=== PATIENT | female | born 1970 | race Caucasian/White ===

== ENCOUNTER 2025-01-29 22:54 | Emergency (ER) | payer BC, SELFPAY ==
--- NOTE | 2025-01-30 01:24 | ED.GENMED ---
History of Present Illness
General
Chief Complaint: Musculo-Skeletal Complaint
Source: patient
Exam Limitations: none
Time Seen by Provider: 01/30/25 00:53
Nursing documentation reviewed up to this point in time: agreed with
History of Present Illness
History of Present Illness:
54-year-old female presenting to the emergency department today after twisting her right ankle. Immediately was unable to walk secondary to pain pain mainly to the lateral aspect of her ankle. Denies any numbness weakness or additional concerns.
No additional injuries otherwise.
Review of Systems
Review of Systems
Allergies reviewed?: Yes
All Other Systems: ROS reviewed and negative except as documented in HPI and ROS
Phy Exam
Physical Exam
Physical Exam:
GENERAL: Alert , in no apparent distress
EYE: pupils equal and reactive
NECK: Supple, no significant adenopathy.
ENT: o/p clr, mmm.
CARDIAC: Regular rate and rhythm .
LUNGS: Clear breath sounds bilaterally, no acute respiratory distress, no wheezes/rales/rhonchi
ABDOMEN: Soft, without focal tenderness, no r/g, no cvat
NEUROLOGICAL: Alert and oriented, no focal neuro deficits
SKIN: Warm and dry, skin intact.
MUSCULOSKELETAL: Slight swelling to the right ankle mainly overlying the lateral malleolus. Tenderness to the posterior lateral malleolus no tenderness anteriorly no pain to the base of the fifth metatarsal or the foot no tenderness throughout the
alvarado., well perfused.
PSYCH: Normal and appropriate interaction.
Course
Orders/Labs/Results
Orders:
Orders
01/29/25 22:59
Ankle, Right 3 view CR [CR Ankle - Right Min 3 Views *] Urgent
Comment:
Reason For Exam: ROLLED ANKLE
01/30/25 01:23
boot [Ortho Boot Right- Treatment] ONCE
Short or tall?: Tall
Vital Signs
Initial and Last Documented VS:
Initial Vital Signs
Temp Pulse Resp BP Pulse Ox
97.8 F 96 20 126/82 96
01/29/25 22:56 01/29/25 22:56 01/29/25 22:56 01/29/25 22:56 01/29/25 22:56
Last Documented Vital Signs
Temp Pulse Resp BP Pulse Ox
97.8 F 96 20 126/82 97
01/29/25 22:56 01/29/25 22:56 01/29/25 22:56 01/29/25 22:56 01/30/25 00:47
MDM/Problems Addressed
MDM/Problems Addressed:
54-year-old female presenting after inversion injury to the right ankle. Patient found to have a distal fibular fracture. She was placed in a otherwise given crutches will follow-up closely with orthopedics. Neurovascular intact on exam.
*Pulse Oximetry
SaO2: 97
Oxygen Mode of Delivery: Room air
Patient hypoxic: no (99)
*Critical Care Note
Total Time (30-74mins, 75-104mins- exclusive of procedures): Not Applicable
ED Attending Note
-
Portions of this chart may have been created with voice recognition software.� Occasional wrong word or��sound alike� substitutions may have occurred due to the inherent limitations of voice recognition software.
Discharge Plan
Departure
Patient Disposition: Home (Routine Discharge)
Date of Disposition: 01/30/25
Time of Disposition: 01:31
Patient with high blood pressure during this ER visit?: No
Condition: Good
Covid-19: Not Applicable
Discharge Problem:
Fracture of distal end of fibula
Instructions: Ankle Fracture (DC)
Referrals:
Danie Prabhakar MD [Active, Orthopedics] - Follow up in 5-7 days
Danish Pratt MD [Family Provider, Family Practice]
Activity Restrictions/Additional Instructions:
You came to the emergency department today with concerns of an ankle injury. You are found to have a disc fibula fracture. Please rest ice compress and elevate and use the follow-up closely with orthopedics for further recommendations in the next
week. Return for any worsening, new or concerning symptoms.
Interventions
Interventions:
*Risk Screen - Suicide Last Done: 01/29/25 22:56
*General Assessment Last Done: 01/30/25 00:49
*Neglect/Abuse Screening Last Done: 01/29/25 22:56
*ED- Fall Risk Assessment Last Done: 01/30/25 00:49
*ED COVID-19 Vaccine History Last Done: 01/30/25 00:49
ED-Musculoskeletal Assessment Last Done: 01/30/25 00:46
Discharge Date and Time
Print Language: MALAGASY
== END 2025-01-30 01:49 | disposition home or self-care (01) ==
LOC: EMR 22:54
PROVIDERS: EMERGENCY PHYSICIAN Student in an Organized Health Care Education/Training Program; FAMILY PHYSICIAN Family Medicine
DX: S82.831A Other fracture of upper and lower end of right fibula, initial encounter for closed fracture (principal); X50.1XXA Overexertion from prolonged static or awkward postures, initial encounter
CPT/HCPCS: 99283; 73610